=== PATIENT | male | born 2000 | race Caucasian/White ===

== ENCOUNTER 2021-02-28 04:20 | Emergency (ER) | payer SELFPAY ==
[2021-02-28] VITALS (7 sets, daily range): BP systolic 122–128; BP diastolic 78–100; PULSE 80–104; RESP 20; TEMP 36.4–36.9; O2SAT 94–100
--- NOTE | ~2021-02-28 | XR_ITS ---
EXAMINATION: XR chest 2V DATE: 02/28/2021 05:23 INDICATION: Wheezing and shortness of breath. Chest congestion. TECHNIQUE: PA and lateral views of the chest were obtained. COMPARISON: None FINDINGS: The lungs are mildly hyperexpanded but clear with no focal airspace opacities, pulmonary edema, pleur al effusion or pneumothorax. There is some perihilar mild bronchial wall thickening. The cardiomedias tinal silhouette is normal. Visualized bones and soft tissues are unremarkable. IMPRESSION: 1. Mild hyperexpansion of lungs with mild perihilar bronchial wall thickening but without focal airsp steff opacities suggestive of asthma/reactive airway disease with differential including bronchitis or mild atypical/viral pneumonia. Reviewed, dictated and finalized at location A. IMPRESSION: 1. Mild hyperexpansion of lungs with mild perihilar bronchial wall thickening b ut without focal airspace opacities suggestive of asthma/reactive airway diseas e with differential including bronchitis or mild atypical/viral pneumonia.
[2021-02-28] MEDS: IPRATROPIUM 0.5 MG/ALBUTEROL SULFATE 2.5 MG AMPUL.NEB 3 ML INHALATION ×2 (04:45→06:08)
--- NOTE | 2021-02-28 05:56 | ED.ASTHMA ---
HPI - Asthma General Chief Complaint: Asthma Stated Complaint: Cough Source: patient and RN notes reviewed Mode of arrival: ambulatory Limitations: no limitations History of Present Illness HPI Narrative: Patient was at another facility last night. He received albuterol MDI and has been using that today. He said it has helped some but not very much. He had no other workup done at the outside facility. MD complaint: asthma attack and wheezing Onset (ago): week(s) (2) Severity: moderate Context: recent URI Associated symptoms: dry cough Asthma History: childhood onset and history of prior ED visit Treatments Prior to Arrival: inhaled bronchodilator Related Data Current Asthma Therapy: inhaled bronchodilator Home Medications Medication Instructions Recorded Confirmed albuterol sulfate 2 puff INHALATION PRN PRN 02/28/21 02/28/21 bupropion HCl 150 mg PO DAILY 02/28/21 02/28/21 lisdexamfetamine [Vyvanse] 70 mg PO DAILY 02/28/21 02/28/21 mirtazapine 30 mg PO HS 02/28/21 02/28/21 prazosin 1 mg PO DAILY 02/28/21 02/28/21 quetiapine 100 mg PO DAILY 02/28/21 02/28/21 Allergies Allergy/AdvReac Type Severity Reaction Status Date / Time No Known Allergies Allergy Verified 02/28/21 04:33 Review of Systems Review of Systems: All systems reviewed & are unremarkable except as noted in HPI and below Constitutional: Constitutional: Denies chills and Denies fever(s) PMFSH Past Medical History Medical History (Updated 02/28/21 @ 06:11 by Nikhil Shaver MD) Anxiety and depression Asthma exercise-induced COVID-19 Surgical History Surgical History (Updated 02/28/21 @ 06:05 by Nikhil Shaver MD) No pertinent past surgical history Social History Social History (Updated 02/28/21 @ 06:05 by Nikhil Shaver MD) Smoking packs per day: 1 Smoking cigarettes per day: 20.0 Smoking status: Current every day smoker Tobacco type: cigarettes Alcohol intake: never Substance use: former Living arrangements: with family Exam Const: General: healthy appearing and no acute distress Nutritional Appearance: well nourished Orientation/consciousness: patient oriented x3 HENMT: Head: normal to inspection Ears: external ears normal Mouth: Yes moist mucous membranes Eyes: Conjunctivae: conjunctivae normal Pupils: Equal, round and reactive pupils present EOM: EOMs intact bilaterally Neck: Neck: normal visual inspection Resp: Effort & Inspection: normal respiratory effort Auscultation: wheezes expiratory wheezes, inspiratory wheezes, posterior and throughout Cardio: Rate: regular rate Rhythm: regular rhythm GI: Auscultation: normal bowel sounds Back/Spine/Pelvis: Cervical Spine: cervical ROM normal Thoracic/Lumbar Spine: thoraco-lumbar ROM normal Skin: General skin exam: normal color Lesions: no lesions Neuro: General: patient oriented x3, moves all extremities, no meningeal signs and no focal motor deficits Speech: normal speech Gait exam (Neuro): Normal gait present Extrem: General: normal to inspection and no clubbing, cyanosis or edema Psych: Appearance: grossly normal and well kempt Mental Status: mental status grossly normal Affect: normal affect Attitude: cooperative Thought content: Yes Normal thought content present Course Course Emergency Course: patient received DuoNeb x2 and Solu-Medrol. Feels better after his very 1st neb and he better after the 2nd. He will be placed on steroids as an outpatient. Vital Signs Vital signs: Vital Signs Temperature 36.4 C 02/28/21 04:20 Pulse Rate 104 H 02/28/21 04:20 Respiratory Rate 20 02/28/21 04:20 Blood Pressure 128/100 H 02/28/21 04:20 Pulse Oximetry 97 02/28/21 04:20 Temperature 36.9 C 02/28/21 06:20 Pulse Rate 100 02/28/21 06:20 Respiratory Rate 20 02/28/21 06:20 Blood Pressure 122/78 02/28/21 06:20 Pulse Oximetry 97 02/28/21 06:20 MDM - Asthma Imaging Data Radiologist's impression: Mild per
[2021-02-28] MEDS: methylPREDNISolone SOD SUCC 125 MG VIAL IM (06:08)
== END 2021-02-28 06:21 | disposition home or self-care (01) ==
PROVIDERS: Emergency Provider Emergency Medicine; PCP Family Medicine
DX: J45.41 Moderate persistent asthma with (acute) exacerbation (principal)
CPT/HCPCS: 71046; 94640; 96372; 99283; J2930